=== PATIENT | female | born 1955 | race Caucasian/White ===

== ENCOUNTER 2020-06-01 12:12 | Emergency (ER) | payer OTHER ==
[2020-06-01 13:40] LABS: Absolute Lymphocytes (CBC) 1.2 K/uL (0.7-4.9); Basophils % 0.5 % (0-1.3); Hematocrit 44.5 % (36.0-45.0); MPV 11.1 fL (7.6-11.3); RBC Red Blood Cell Count 4.78 M/uL (3.86-4.86)
[2020-06-01] MEDS ORDERED: FAMOTIDINE 20 MG/2 ML VIAL IV ONE (13:41)
[2020-06-01] MEDS ORDERED: MORPHINE 2 MG/ML SYR ONE (13:41)
[2020-06-01] MEDS ORDERED: NA CHLORIDE 0.9% 1,000 ML ONE (13:41)
[2020-06-01] MEDS ORDERED: ONDANSETRON 4 MG/2 ML VIAL ONE (13:41)
--- NOTE | 2020-06-01 13:46 | RAD REPORT ---
EXAM DESCRIPTION: RAD - Chest Single View - 06/01/2020 1:28 pm CLINICAL HISTORY: ABDOMINAL DISTENTION COMPARISON: Portable November 2013 TECHNIQUE: AP portable chest image was obtained 06/01/2020 1:28 pm . FINDINGS: No focal mass or consolidation. Interstitial pattern believed be baseline. Heart and vascu lature are normal. No measurable pleural effusion and no pneumothorax. No acute bony abnormality seen . No acute aortic findings suspected. IMPRESSION: No acute cardiopulmonary process.
[2020-06-01 13:54] LABS: Albumin 3.3 g/dL (3.4-5.0); Bilirubin Direct 0.2 mg/dL (0-0.2); Bilirubin Total 0.7 mg/dL (0.2-1.0); Protein, Total 7.2 g/dL (6.4-8.2); Troponin (Emerg Dept Use Only) 0.02 ng/mL (0.0-0.045)
[2020-06-01 15:38] LABS: Urine Blood TRACE (NEG); Urine Glucose NEGATIVE (NEG); Urine Protein NEGATIVE (NEG); Urine Specific Gravity 1.015 (1.005-1.030); Urine pH 5.5 (5.0-7.0)
--- NOTE | 2020-06-01 15:40 | RAD REPORT ---
EXAM DESCRIPTION: CT - Abdomen Pelvis W Contrast - 06/01/2020 3:25 pm CLINICAL HISTORY: ABD PAIN COMPARISON: No comparisons TECHNIQUE: Biphasic, helical CT imaging of the abdomen and pelvis was performed following 100 ml non -ionic IV contrast. Oral contrast was given. All CT scans are performed using dose optimization technique as appropriate and may include automated exposure control or mA/KV adjustment according to patient size. FINDINGS: No suspicious findings in the lung bases. The liver, spleen, and pancreas show no suspicious findings. Liver attenuation is borderline fatty in filtration. Gallbladder is out. No biliary tree dilatation. No pancreatitis findings. Symmetric renal function is seen with no hydronephrosis or suspicious renal mass. No pyelonephritis o r acute parenchymal process. Urinary bladder is mostly contracted. No adrenal abnormalities. Uterus i s absent. Ovaries are atrophic. No adnexal mass. No dilated bowel loops or bowel wall thickening. No evidence for appendicitis. No acute GI process is identifiable. No free air, free fluid or inflammatory stranding. No hernia, mass or bulky lymphaden opathy. No suspicious bony findings. IMPRESSION: Contrast enhanced CT abdomen and pelvis showing no significant or suspicious finding. Nonacute findings detailed in the body of the report.
--- NOTE | 2020-06-01 17:16 | EDPHYS ---
Physician Documentation [facility] Name: Maged Taylor Age: 65 yrs Sex: Female : 1955 Arrival Date: 06/01/2020 Time: 12:15 Bed 20 Private MD: Drake Cope HPI: 06/01 12:59 This 65 yrs old Female presents to ER via Wheelchair with complaints of Pain scott All Over, Weakness, Nausea. 12:59 The patient presents to the emergency department with. scott 12:59 The patient presents with abdominal pain in the upper abdomen, in the lower abdomen, scott abdominal distention in the upper abdomen, in the lower abdomen. Onset: The symptoms/episode began/occurred 2 day(s) ago. The symptoms do not radiate. Associated signs and symptoms: none. Associated signs and symptoms: none. Pertinent positives: diarrhea, nausea. The symptoms are described as crampy, dull. Modifying factors: The symptoms are alleviated by nothing, the symptoms are aggravated by movement. The patient has experienced similar episodes in the past, a few times. Historical: - Allergies: 12:47 Tetanus Vaccines \T\ Toxoid; iw 12:47 Erythromycin; iw - Home Meds: 13:01 gabapentin 600 mg oral tab twice a day [Active]; donepezil 23 mg oral tab 1 tab once iw daily [Active]; citalopram 10 mg tab 1 tab once daily [Active]; citalopram 10 mg tab 1 tab once daily [Active]; escitalopram oxalate 10 mg oral tab 1 tab once daily [Active]; lisinopril 10 mg Oral tab 1 tab once daily [Active]; memantine 10 mg oral tab 1 tab 2 times per day [Active]; - PMHx: 12:47 Hypertension; iw 13:01 Pancreatitis; Bipolar disorder; iw - PSHx: 12:47 cataract sx; rotator cuff; Hysterectomy; iw 13:01 Cholecystectomy; iw - Immunization history:: Adult Immunizations not up to date. - Social history:: Smoking status: Patient denies any tobacco usage or history of. - Family history:: not pertinent. ROS: 12:59 Constitutional: Negative for fever, chills, and weight loss, Eyes: Negative for injury, scott pain, redness, and discharge, ENT: Negative for injury, pain, and discharge, Neck: Negative for injury, pain, and swelling, Cardiovascular: Negative for chest pain, palpitations, and edema, Respiratory: Negative for shortness of breath, cough, wheezing, and pleuritic chest pain, Back: Negative for injury and pain, : Negative for injury, bleeding, discharge, and swelling, MS/Extremity: Negative for injury and deformity, Skin: Negative for injury, rash, and discoloration, Neuro: Negative for headache, weakness, numbness, tingling, and seizure, Psych: Negative for depression, anxiety, suicide ideation, homicidal ideation, and hallucinations, Allergy/Immunology: Negative for hives, rash, and allergies, Endocrine: Negative for neck swelling, polydipsia, polyuria, polyphagia, and marked weight changes, Hematologic/Lymphatic: Negative for swollen nodes, abnormal bleeding, and unusual bruising. 12:59 Abdomen/GI: Positive for abdominal pain, nausea, diarrhea, abdominal cramps, abdominal distension, of the right upper quadrant, left upper quadrant, right lower quadrant and left lower quadrant. Exam: 12:59 Constitutional: This is a well developed, well nourished patient who is awake, alert, scott and in no acute distress. Head/Face: Normocephalic, atraumatic. Eyes: Pupils equal round and reactive to light, extra-ocular motions intact. Lids and lashes normal. Conjunctiva and sclera are non-icteric and not injected. Cornea within normal limits. Periorbital areas with no swelling, redness, or edema. ENT: Nares patent. No nasal discharge, no septal abnormalities noted. Tympanic membranes are normal and external auditory canals are clear. Oropharynx with no redness, swelling, or masses, exudates, or evidence of obstruction, uvula midline. Mucous membranes moist. Neck: Trachea midline, no thyromegaly or masses palpated, and no cervical lymphadenopathy. Supple, full range of motion without nuchal rigidity, or vertebral point tenderness. No Meningismus. Chest/axilla: Normal chest wall appearance and motion. Nontender with no deformity. No lesions are appreciated. Cardiovascular: Regular rate and rhythm with a normal S1 and S2. No gallops, murmurs, or rubs. Normal PMI, no JVD. No pulse deficits. Respiratory: Lungs have equal breath sounds bilaterally, clear to auscultation and percussion. No rales, rhonchi or wheezes noted. No increased work of breathing, no retractions or nasal flaring. Back: No spinal tenderness. No costovertebral tenderness. Full range of motion. Female : Normal external genitalia. Skin: Warm, dry with normal turgor. Normal color with no rashes, no lesions, and no evidence of cellulitis. MS/ Extremity: Pulses equal, no cyanosis. Neurovascular intact. Full, normal range of motion. Neuro: Awake and alert, GCS 15, oriented to person, place, time, and situation. Cranial nerves II-XII grossly intact. Motor strength 5/5 in all extremities. Sensory grossly intact. Cerebellar exam normal. Normal gait. Psych: Awake, alert, with orientation to person, place and time. Behavior, mood, and affect are within normal limits. 12:59 Abdomen/GI: Inspection: distension, that is moderate, in the right upper quadrant, left upper quadrant, right lower quadrant and left lower quadrant, Bowel sounds: normal, Liver: no appreciated palpable abnormalities, Hernia: not appreciated. 14:00 ECG was reviewed by the Attending Physician. [facility] Vital Signs: 12:47 BP 133 / 84; Resp 16 S; Temp 98.8; Pulse Ox 97% on R/A; Weight 137.89 kg; Height 5 ft. iw 4 in. (162.56 cm); 14:00 BP 129 / 64; Pulse 77; Resp 17; Pulse Ox 98% ; rb1 15:00 BP 158 / 95; Pulse 75; Resp 12; Pulse Ox 100% ; rb1 17:15 BP 123 / 81; Pulse 73; Resp 14; Pulse Ox 100% ; rb1 18:00 BP 123 / 79; Pulse 75; Resp 16; Pulse Ox 100% ; rb1 12:47 Body Mass Index 52.18 (137.89 kg, 162.56 cm) iw MDM: 12:24 Patient medically screened. scott 13:01 Differential diagnosis: bowel obstruction, diverticulitis, gastritis, non-specific abd scott pain, pancreatitis, Peptic Ulcer Disease, Perf. Duodenal Ulcer, Perf. Gastric Ulcer, Pyelonephritis. Data reviewed: vital signs, nurses notes, lab test result(s), EKG, radiologic studies, CT scan, plain films. Data interpreted: monitoring tech: Pulse oximetry: on room air is 97 %. Test interpretation: by ED physician or midlevel provider: ECG, plain radiologic studies. Counseling: I had a detailed discussion with the patient and/or guardian regarding: the historical points, exam findings, and any diagnostic results supporting the discharge/admit diagnosis, lab results, radiology results. 06/01 12:59 Order name: Basic Metabolic Panel; Complete Time: 14:01 [facility] 06/01 12:59 Order name: CBC with Diff; Complete Time: 14: [facility] 06/01 12:59 Order name: LFT's; Complete Time: 14: [facility] 06/01 12:59 Order name: Magnesium; Complete Time: 14: [facility] 06/01 12:59 Order name: NT PRO-BNP; Complete Time: 14: [facility] 06/01 12:59 Order name: Troponin (emerg Dept Use Only); Complete Time: 14: [facility] 06/01 12:59 Order name: XRAY Chest (1 view); Complete Time: 14: [facility] 06/01 12:59 Order name: Lipase; Complete Time: 14: [facility] 06/01 12:59 Order name: Urine Culture [facility] 06/01 12:59 Order name: CT Abd/Pelvis - PO and IV Contrast; Complete Time: 16:30 [facility] 06/01 15:13 Order name: Urine Dipstick--Ancillary (enter results); Complete Time: 16:30 06/01 12:59 Order name: EKG; Complete Time: 12:59 [facility] 06/01 12:59 Order name: Cardiac monitoring; Complete Time: 16:14 [facility] 06/01 12:59 Order name: EKG - Nurse/Tech; Complete Time: 16:15 [facility] 06/01 12:59 Order name: IV Saline Lock; Complete Time: 13:29 [facility] 06/01 12:59 Order name: Labs collected and sent; Complete Time: 13:29 [facility] 06/01 12:59 Order name: O2 Per Protocol; Complete Time: 13:45 [facility] 06/01 12:59 Order name: O2 Sat Monitoring; Complete Time: 14:52 [facility] 06/01 12:59 Order name: Urine Dipstick-Ancillary (obtain specimen); Complete Time: 16:15 [facility] 06/01 16:31 Order name: PO challenge; Complete Time: 17:42 [facility] EC:00 Rate is 73 beats/min. Rhythm is regular. QRS [place] is Normal. LA interval is normal. QRS scott interval is normal. QT interval is normal. No Q waves. T waves are Normal. No ST changes noted. Clinical impression: NSR w/ Non-specific ST/T Changes and No evidence of ischemia. Interpreted by me. Reviewed by me. Administered Medications: 13:40 Drug: morphine 2 mg Route: IVP; Site: left antecubital; rb1 13:55 Follow up: Response: No adverse reaction; Pain is decreased rb1 13:40 Drug: Zofran (Ondansetron) 4 mg Route: IVP; Site: left antecubital; rb1 13:55 Follow up: Response: No adverse reaction rb1 13:40 Drug: Pepcid 20 mg Route: IVP; Site: left antecubital; rb1 13:55 Follow up: Response: No adverse reaction rb1 13:40 Drug: NS 0.9% 1000 ml Route: IV; Rate: 1 bolus; Site: left antecubital; rb1 Disposition: 06/01/20 17:15 Discharged to Home. Impression: Weakness, Volume depletion - mild, Essential (primary) hypertension, Bipolar disorder. - Condition is Stable. - Discharge Instructions: Dehydration, Adult, Hypertension, Weakness, Hypertension, [id number], Weakness, [id number], Dehydration, Adult, [id number], Managing Your Hypertension. - Prescriptions for Bentyl 20 mg Oral Tablet - take 1 tablet by ORAL route every 6 hours As needed; 20 tablet. Pepcid 20 mg Oral Tablet - take 1 tablet by ORAL route every 12 hours for 10 days; 20 tablet. Zofran 4 mg Oral Tablet - take 1 tablet by ORAL route every 12 hours As needed; 20 tablet. - Medication Reconciliation Form, Thank You Letter, Antibiotic Education, Prescription Opioid Use form. - Follow up: Private Physician; When: 2 - 3 days; Reason: Recheck today's complaints, Continuance of care, Re-evaluation by your physician. - Problem is new. - Symptoms have improved. Signatures: Dispatcher [employer] EDDrake Burris MD MD cha Williams, Irene, RN RN iw Barber, Rebecca, RN RN rb1 Corrections: (The following items were deleted from the chart) 18:27 17:15 06/01/2020 17:15 Discharged to Home. Impression: Weakness; Volume depletion - rb1 mild; Essential (primary) hypertension; Bipolar disorder. Condition is Stable. Forms are Medication Reconciliation Form, Thank You Letter, Antibiotic Education, Prescription Opioid Use. Follow up: Private Physician; When: 2 - 3 days; Reason: Recheck today's complaints, Continuance of care, Re-evaluation by your physician. Problem is new. Symptoms have improved. scott
--- NOTE | 2020-06-01 17:16 | ER ---
Nurse's Notes [facility] Name: Maged Taylor Age: 65 yrs Sex: Female : 1955 Arrival Date: 06/01/2020 Time: 12:15 Bed 20 Private MD: Diagnosis: Weakness;Volume depletion-mild;Essential (primary) hypertension;Bipolar disorder Presentation: 06/01 12:41 Chief complaint: Patient states: has back pain radiating down to left buttock, jose maria iw groin pain, pain under her left breast,feels burning inside and outside her body, has been going on for a long time, also has headache, confusion,chills, fatigue, general weakness, falls, joint pain, diarrhea as soon as she eats anything. Coronavirus screen:. Ebola Screen: Patient negative for fever greater than or equal to 101.5 degrees Fahrenheit, and additional compatible Ebola Virus Disease symptoms Patient denies exposure to infectious person. Patient denies travel to an Ebola-affected area in the 21 days before illness onset. No symptoms or risks identified at this time. Initial Sepsis Screen: Does the patient meet any 2 criteria? No. Patient's initial sepsis screen is negative. Does the patient have a suspected source of infection? No. Patient's initial sepsis screen is negative. Risk Assessment: Do you want to hurt yourself or someone else? Patient reports no desire to harm self or others. 12:41 Method Of Arrival: Wheelchair iw 12:41 Acuity: CLAIRE 3 iw 12:53 Onset of symptoms is unknown. iw Historical: - Allergies: 12:47 Tetanus Vaccines \T\ Toxoid; iw 12:47 Erythromycin; iw - Home Meds: 13:01 gabapentin 600 mg oral tab twice a day [Active]; donepezil 23 mg oral tab 1 tab once iw daily [Active]; citalopram 10 mg tab 1 tab once daily [Active]; citalopram 10 mg tab 1 tab once daily [Active]; escitalopram oxalate 10 mg oral tab 1 tab once daily [Active]; lisinopril 10 mg Oral tab 1 tab once daily [Active]; memantine 10 mg oral tab 1 tab 2 times per day [Active]; - PMHx: 12:47 Hypertension; iw 13:01 Pancreatitis; Bipolar disorder; iw - PSHx: 12:47 cataract sx; rotator cuff; Hysterectomy; iw 13:01 Cholecystectomy; iw - Immunization history:: Adult Immunizations not up to date. - Social history:: Smoking status: Patient denies any tobacco usage or history of. - Family history:: not pertinent. Screenin:25 Abuse screen: Denies threats or abuse. Nutritional screening: No deficits noted. rb1 Tuberculosis screening: No symptoms or risk factors identified. Assessment: 12:25 General: Appears in no apparent distress. comfortable, Behavior is calm, cooperative. rb1 General: Denies fatigue, chills. Pain: Complains of pain in back. bilateral groin, under left breast Pain began unknown; pt. reports that it has been going on for a long time. Neuro: Level of Consciousness is awake, alert, obeys commands, Oriented to person, place, time, situation. Neuro: Reports headache weakness. Cardiovascular: Capillary refill Patient's skin is warm and dry. Respiratory: Airway is patent Respiratory effort is even, unlabored, Respiratory pattern is regular, symmetrical. GI: Reports diarrhea. : No signs and/or symptoms were reported regarding the genitourinary system. 13:25 Reassessment: Patient appears in no apparent distress at this time. Patient and/or rb1 family updated on plan of care and expected duration. Pain level reassessed. Patient is alert, oriented x 3, equal unlabored respirations, skin warm/dry/pink. 14:35 Reassessment: Patient appears in no apparent distress at this time. Pain decreased. rb1 15:30 Reassessment: Patient appears in no apparent distress at this time. Patient and/or rb1 family updated on plan of care and expected duration. Pain level reassessed. Patient is alert, oriented x 3, equal unlabored respirations, skin warm/dry/pink. 16:30 Reassessment: Patient appears in no apparent distress at this time. No changes from rb1 previously documented assessment. 17:33 Reassessment: Discharge pending due to IV fluids infusing. rb1 18:05 Reassessment: Patient appears in no apparent distress at this time. Patient and/or rb1 family updated on plan of care and expected duration. Pain level reassessed. Patient is alert, oriented x 3, equal unlabored respirations, skin warm/dry/pink. Vital Signs: 12:47 BP 133 / 84; Resp 16 S; Temp 98.8; Pulse Ox 97% on R/A; Weight 137.89 kg; Height 5 ft. iw 4 in. (162.56 cm); 14:00 BP 129 / 64; Pulse 77; Resp 17; Pulse Ox 98% ; rb1 15:00 BP 158 / 95; Pulse 75; Resp 12; Pulse Ox 100% ; rb1 17:15 BP 123 / 81; Pulse 73; Resp 14; Pulse Ox 100% ; rb1 18:00 BP 123 / 79; Pulse 75; Resp 16; Pulse Ox 100% ; rb1 12:47 Body Mass Index 52.18 (137.89 kg, 162.56 cm) iw ED Course: 12:15 Patient arrived in ED. as 12:24 Drake Vaughn MD is Attending Physician. scott 12:25 Patient has correct armband on for positive identification. Bed in low position. Call rb1 light in reach. Side rails up X2. Pulse ox on. NIBP on. Warm blanket given. 12:32 Laureen Barker, RN is Primary Nurse. rb1 12:44 Triage completed. iw 13:02 Arm band placed on. iw 13:28 XRAY Chest (1 view) In Process Unspecified. EDMS 13:28 Inserted saline lock: 20 gauge in left antecubital area, using aseptic technique. Blood dh4 collected. 15:25 CT Abd/Pelvis - PO and IV Contrast In Process Unspecified. EDMS 15:25 CT completed. Patient tolerated procedure well. Patient moved back from CT. bq 18:17 No provider procedures requiring assistance completed. IV discontinued, intact, rb1 bleeding controlled, No redness/swelling at site. Pressure dressing applied. Administered Medications: 13:40 Drug: morphine 2 mg Route: IVP; Site: left antecubital; rb1 13:55 Follow up: Response: No adverse reaction; Pain is decreased rb1 13:40 Drug: Zofran (Ondansetron) 4 mg Route: IVP; Site: left antecubital; rb1 13:55 Follow up: Response: No adverse reaction rb1 13:40 Drug: Pepcid 20 mg Route: IVP; Site: left antecubital; rb1 13:55 Follow up: Response: No adverse reaction rb1 13:40 Drug: NS 0.9% 1000 ml Route: IV; Rate: 1 bolus; Site: left antecubital; rb1 Outcome: 17:15 Discharge ordered by . scott 18:17 Patient left the ED. rb1 18:17 Discharged to home via wheelchair, with family. rb1 18:17 Condition: stable 18:17 Discharge instructions given to patient, Instructed on discharge instructions, follow up and referral plans. medication usage, Demonstrated understanding of instructions, follow-up care, medications, Prescriptions given X 3. Signatures: Dispatcher [employer] EDMS Drake Vaughn MD MD cha Quilty, Betty bq Martinez, Amelia as Williams, Irene, RN RN Laureen Barker RN RN rb1 Maldonado Rowe 4 Corrections: (The following items were deleted from the chart) 13:02 12:47 BP 133 / 84; Resp 16bpm; Spontaneous; Pulse Ox 97% RA; Temp 98.8F; iw iw 19:12 18:27 Patient left the ED. rb1 rb1
[2020-06-01 18:35] VITALS: TEMP 98.8
[2020-06-01 18:38] VITALS: O2SAT 100
[2020-06-01 18:39] VITALS: BP 123/81
== END 2020-06-01 18:27 | disposition home or self-care (01) ==
LOC: ER 12:12
DX: E86.9 Volume depletion, unspecified (principal); I10 Essential (primary) hypertension; F31.9 Bipolar disorder, unspecified; Z88.3 Allergy status to other anti-infective agents; Z88.7 Allergy status to serum and vaccine
CPT/HCPCS: 93005; 87088; 85025; 87086; 80048; 36415; 83735; 80076; 81003; 84484; 83690; 83880; 74177; 71045; 96375; 96374; 99284; Q9967; J2270; J7030; J2405